=== PATIENT | female | born 1995 | race Hispanic/Latino ===

== ENCOUNTER 2021-04-28 08:09 | Emergency (ER) | payer OTHER ==
[2021-04-28 08:48] VITALS: BP 142/107
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
[2021-04-28] MEDS ORDERED: ACETAMINOPHEN 325 MG TAB PO ONE (12:57)
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
== END 2021-04-28 15:28 | disposition home or self-care (01) ==
LOC: ED 08:09
DX: S93.401A Sprain of unspecified ligament of right ankle, initial encounter (principal); S93.602A Unspecified sprain of left foot, initial encounter; S70.02XA Contusion of left hip, initial encounter; V49.59XA Passenger injured in collision with other motor vehicles in traffic accident, initial encounter; Y93.89 Activity, other specified; Y92.488 Other paved roadways as the place of occurrence of the external cause; Y99.8 Other external cause status
CPT/HCPCS: 99283